=== PATIENT | male | born 1945 | race African-American/Black ===

== ENCOUNTER 2016-06-10 20:17 | Emergency (ER) | payer OTHER ==
[2016-06-10] MEDS: ADRENALINE CHL INJ (ABBOJECT) IVP PRN ×8 (20:18→20:39)
[2016-06-10 21:07] VITALS: BMI 27.8
[2016-06-10 22:13] VITALS: BP 0/0
--- NOTE | 2016-06-21 10:47 | DR.CA ---
HPI - PCP Primary Care Physician: UNKNOWN - HPI Comment HPI Comment: HERE VIA EMS , UNRESPONSIVE PATIENT FOUND IN THE [place]. NO WITNESS AND DOWN TIME NOT KNOWN. DIAPHORETIC, NO PULSE, RESPIRATION OR HEART BEAT. CPR IN PROGRESS. THERE IS IV ACCESS. NOT INTUBATED. AMBU BAD ASSISTED VENTILATION. - Complaint Chief Complaint Doctor Comments: CARDIAC ARREST, ASYSTOLE. Chief Complaint:: EMS RESPONDED TO A CALL IN THE [facility] TO MALE DOWN IN [place], UNRESPONSIVE, UNKNOWN CIRCUMSTANCES. ON ARRIVAL PATIENT IN ASYSTOLE, DIAPHORETIC. PT BROUGHT IN PER EMS VIA STRETCHER IN FULL CARDIAC ARREST BEING BAGGED, IV ACCESS, NO INTUBATION. RESPIRATORY, , CHARGE NURSE...ER NURSES ALL PRESENT. PATIENT TRANSFERRED TO CARDIAC STRETCHER , TUGBOAT OPERATOR INTACT PATIENT REMAINS IN ASYSTOLE, NO PULSE, NO RESPIRATIONS. PATIENT DIAPHORETIC, NOTED INCONTINENCE URINE AND FECES. PATIENT WITH EMESIS COMING OUT OF NOSE AND MOUTH. NOTED ABD TO BE DISTENDED, HARD. CPR CONTINUED. - Reviewed Nurses Notes Review: Yes - Source History Provided: EMS - Mode of arrival Mode of Arrival: EMS - Timing Onset of Chief Complaint: 06/10/16 - Context Onset: Unknown History R/T Cardiac Arrest: Unknown Prehospital Care: Initial Rhythm: Asystole Prehospital: Treatment: CPR, IV Prehospital: Response to Treatment: No Response - Associated Signs and Symptoms Associated Signs and Symptoms: Unknown, Other (UNRESPONSIVE) PMH - PMH Past Medical History: No Past Surgical History: No - Family History History of Family Medical Conditions: No - infectious screening Have you traveled outside the country in the last 6 months?: No Isolation: Standard ROS - Review of Systems Constitutional: Other (UNRESPONSIVE) Eyes: Other (UNKNOWN) Respiratoy: Other (UNKNWN) Gastrointestinal/Abdominal: Other (UNRESPONSIVE). negative: Vomiting Neurological: Other (UNKNOWN) Musculoskeletal: Other (UNKNOWN) Integumentary: Other (DIAPHORETIC) Hematologic/Lymphatic: Other (UNKNOWN) Endocrine: Other (NOWN) PE - Vitals Vital Signs: Pulse Pulse Resp BP BP Pulse Ox 06/10/16 20:44 0 L 0 L 138/71 0 L 06/10/16 20:40 0 L 0 L 0/0 0 L 06/10/16 20:29 0 L 0 L 166/96 0 L 06/10/16 20:28 0 L 0 L 157/71 0 L 06/10/17 20:17 0 L 0 L 138/71 0 L - General Limitations: Other (UNRESPONSIVE, CARDIAC ARREST.) General Appearance: Obese (UNRESPONSIVE) - Head Head Exam: Normal Inspection - Eyes Eye exam: Other (UNRESPONSIVE) Eyes: Pupils: Fixed, Dilated - ENT ENT Exam: Normal External Ear Exam, Other (LARGE AMMOUNT OF GI CONTENT SUCTION FROM THE MOUTH IN ED.) - Airway Airway: Other (AMBU BAG VENTILATION) Gag: Absent - Neck Neck Exam: Trachea Midline - Chest Chest Inspection: Other (BS HEARD WITH AMBU BAG VENTILATION) Expanded Chest Exam: Other (NONE PRESENT.) - Respiratory Ventilation: Assisted Respiratory Exam: Other (NO SPONTANOUS RESPIRATION) - Cardiovascular Cardiovascular Exam: Other (NO HR OR PULSE) - Abdominal Exam Abdominal Exam: Other (GI FLUID IN MOUTH/SUCTION IN ED.) Abdominal Tenderness: Other (UNRESPONSIVE) - Extremities Extremities Exam: Other (NO PULSES). negative: Edema - Back Back Exam: Other (UNRESPONSIVE) - Neurologic Neurological Exam: Other (UNRESPONSIVE.) - Skin Skin Exam: Other (DIAPHORETIC.) - Diagnosis Discharge Problem: Cardiopulmonary arrest - Discharge Plan Disposition: 20 Condition: Stable - Follow ups/Referrals Follow ups/Referrals: NFD,None [Primary Care Provider] - 3 days - Instructions MDM - Differential Diagnosis Differential Diagnosis: Cardiopulmonary Arrest Course - Treatment Treatment: SEE CODE NOTE - Education/Counseling Educated On: Other (PATIENT )
== END 2016-06-10 21:48 | disposition expired ==
LOC: ER 20:17
PROC: 0BH17EZ Insertion of Endotracheal Airway into Trachea, Via Natural or Artificial Opening (ICD-10-PCS; principal; 2016-06-10)
PROC: 5A12012 Performance of Cardiac Output, Single, Manual (ICD-10-PCS; principal; 2016-06-10)
DX: I46.9 Cardiac arrest, cause unspecified (principal)
CPT/HCPCS: 31500; 92950; 93041; 96365; 96374; 96375; 99285; 99291; J0170